=== PATIENT | male | born 1990 | race Caucasian/White ===

== ENCOUNTER 2021-02-08 20:47 | Emergency (ER) | payer OTHER ==
[~2021-02-08] VITALS: Ht 180.3 cm; Wt 95.5 kg
[2021-02-08 20:58] VITALS: BP 134/97
[2021-02-08] MEDS ORDERED: ipratropium/albuterol 3ml nebule NEB ONE (21:10)
[2021-02-08] MEDS ORDERED: ALBU8.5H8 INH (21:28)
== END 2021-02-08 21:44 | disposition home or self-care (01) ==
LOC: ER 20:48
DX: J45.901 Unspecified asthma with (acute) exacerbation (principal); Z79.899 Other long term (current) drug therapy
CPT/HCPCS: 93005; 94640; 94760; 99283

== ENCOUNTER 2021-02-26 21:34 | Emergency (ER) | payer OTHER ==
[~2021-02-26] VITALS: Ht 185.4 cm; Wt 104.5 kg
[~2021-02-26 21:34] MED LIST: ALBU8.5H8 INH
[2021-02-26 21:45] VITALS: BP 137/106
== END 2021-02-26 23:53 | disposition left against medical advice (07) ==
LOC: ER 21:35
DX: F10.129 Alcohol abuse with intoxication, unspecified (principal); Z53.21 Procedure and treatment not carried out due to patient leaving prior to being seen by health care provider; Y90.9 Presence of alcohol in blood, level not specified